=== PATIENT | male | born 1965 | race Asian ===

== ENCOUNTER 2017-02-23 20:40 | Emergency (ER) | payer BC ==
[~2017-02-23] VITALS: Ht 170.2 cm; Wt 81.6 kg
[~2017-02-23 20:40] MED LIST: ALBU1.256 IH; IPRA0.2S6 IH; LIP40 PO
[2017-02-23 21:01] VITALS: BP_SYST 117
[2017-02-23 21:45] LABS: BASOPHILS % (AUTO) 0.5 % (0.0-2.0); EOSINOPHILS # (AUTO) 0.2 K/uL (0.0-0.4); EOSINOPHILS % (AUTO) 3.7 % (0.0-4.0); HEMATOCRIT 50.5 % (36-54); HEMOGLOBIN 16.7 g/dL (14.0-18.0); LYMPHOCYTES # (AUTO) 1.7 K/uL (1.0-5.5); LYMPHOCYTES % (AUTO) 31.2 % (20.5-51.5); MEAN CORPUSCULAR HEMOGLOBIN 30 pg (27-31); MEAN CORPUSCULAR HGB CONC 33 % (32-36); MEAN CORPUSCULAR VOLUME 89 fL (79.0-98.0); MONOCYTES # (AUTO) 0.3 K/uL (0.0-1.0); NEUTROPHILS # (AUTO) 3.4 K/uL (1.8-7.7); NEUTROPHILS % (AUTO) 58.6 % (40.0-70.0); PLATELET COUNT (AUTO) 217 K/uL (130-430); RED BLOOD CELL COUNT(AUTO) 5.65 MIL/uL (4.2-6.2); RED CELL DISTRIBUTION WIDTH 11.9 % (9.0-15.0); WHITE BLOOD COUNT (AUTO) 5.6 K/uL (4.8-10.8)
[2017-02-23] MEDS ORDERED: LORazepam 2 MG/ML VIAL IVP ONE (21:45)
[2017-02-23] MEDS ORDERED: ASPIRIN 325 MG TABLET PO ONE (21:45)
[2017-02-23 22:00] LABS: CALCIUM 9.1 mg/dL (8.4-11.0); CREATININE 1.17 mg/dL (0.55-1.30); POTASSIUM 3.6 mmol/L (3.5-5.1)
[2017-02-23 22:04] LABS: PROTHROMBIN TIME 10.8 SECS (9.5-12.5)
[2017-02-23 22:05] LABS: ALBUMIN 4.5 g/dL (3.4-4.8); TOTAL BILIRUBIN 0.7 mg/dL (0.0-1.0); TOTAL PROTEIN, SERUM 7.9 g/dL (6.4-8.3)
[2017-02-23] MEDS ORDERED: LORazepam 2 MG/ML VIAL (FOR ER USE) ONE (22:21)
[2017-02-23 22:50] LABS: CKMB RELATIVE INDEX 1.2 (0.0-2.9); CREATINE KINASE MB 4.3 ng/mL (0-3.6)
[2017-02-23 23:15] VITALS: BP_SYST 128
== END 2017-02-23 23:15 | disposition home or self-care (01) ==
LOC: SED 20:40
DX: F41.9 Anxiety disorder, unspecified (principal); J45.909 Unspecified asthma, uncomplicated; E78.5 Hyperlipidemia, unspecified
CPT/HCPCS: 36415; 71010; 80053; 82550; 82553; 83880; 84484; 85025; 85610; 85730; 93005; 96374; 99285; J2060

== ENCOUNTER 2018-04-17 22:11 | Emergency (ER) | payer BC ==
[~2018-04-17] VITALS: Ht 170.2 cm; Wt 83.9 kg
[2018-04-17 22:30] VITALS: BP_SYST 127
--- NOTE | 2018-04-17 22:30 | NUR ---
Patient to ER bed 8 for evaluation. Side rails up. Report given to Yun SON.
--- NOTE | 2018-04-17 22:30 | NUR ---
Patient AOx4, ambulatory, presents to ER with compliant of a bump to his head for "a couple of months". Patient states that the bump popped on 04/14/18 during a trip to [place]. Patient states he has had intermittent fevers since . No discharge to site noted at this time.
[2018-04-17] MEDS ORDERED: SULFAMETHOXAZOLE/TRIMETHOPR DS 1 TABLET PO ONE (22:45)
[2018-04-17] MEDS ORDERED: CEPHALEXIN 500 MG CAPSULE PO ONE (22:45)
--- NOTE | 2018-04-17 22:45 | NUR ---
EPI [place] at bedside examining patient.
[2018-04-17 23:05] VITALS: BP_SYST 124
--- NOTE | 2018-04-17 23:05 | NUR ---
No adverse reactions noted after medication administration. Will continue to monitor.
--- NOTE | 2018-04-17 23:05 | NUR ---
Patient given written and verbal discharge instructions and verbalizes understanding. ER MD discussed with patient the results and treatment provided. Patient in stable condition. ID arm band removed. Rx of Keflex and Bactrim DS given. Patient educated on pain management and to follow up with PMD. Pain Scale 0/10. Opportunity for questions provided and answered. Medication side effect fact sheet provided.
== END 2018-04-17 23:05 | disposition home or self-care (01) ==
LOC: SED 22:11
DX: L73.9 Follicular disorder, unspecified (principal); K21.9 Gastro-esophageal reflux disease without esophagitis; J45.909 Unspecified asthma, uncomplicated; E78.5 Hyperlipidemia, unspecified; Z79.899 Other long term (current) drug therapy
CPT/HCPCS: 99283